=== PATIENT | female | born 1955 | race Caucasian/White ===

== ENCOUNTER 2016-10-05 08:02 | Day surgery (SDC) | payer BC ==
--- NOTE | ~2016-10-05 | EGD ---
EGD REPORT [facility] [address] [address] NAME: RADHA BUENO : [birth year] STATUS : PRE [facility] [place] PAT#: [id number] AGE: 61 ADM/REG DATE : MR#: [id number] REPORT SERV DATE: 10/05/16 DICTATED BY: JESUS PICKENS DATE: 10/05/16 REPORT STATUS : Draft TRANSCRIBED BY: [facility] DATE: 10/05/16 Endoscopy Center Patient Name: Radha Bueno Date of : 1955 Attending MD: JESUS PICKENS MD Procedure Date No Time: 10/05/2016 Procedure: Colonoscopy Indications: High risk colon cancer surveillance: Personal history of colonic polyps Referring MD: ROXANE OLIVERA Medicines: as per anesthesia Complications: No immediate complications. Procedure: Pre-Anesthesia Assessment: - ASA Grade Assessment: III - A patient with severe systemic disease. After I obtained informed consent, the scope was passed under direct vision. Throughout the procedure, the patient's blood pressure, pulse, and oxygen saturations were monitored continuously. The PCF [id number] was introduced through the anus and advanced to the cecum, identified by appendiceal orifice and ileocecal valve. The colonoscopy was performed without difficulty. The patient tolerated the procedure. The quality of the bowel preparation was adequate to identify polyps. Findings: The perianal and digital rectal examinations were normal. Internal hemorrhoids were found during endoscopy and were mild. Impression: - Internal hemorrhoids. Recommendation: - Repeat colonoscopy in 5 years for surveillance. Procedure Code(s): --- Professional --- 58090, Colonoscopy, flexible, proximal to splenic flexure; diagnostic, with or without collection of specimen(s) by brushing or washing, with or without colon decompression (separate procedure) Diagnosis Code(s): --- Professional --- K64.8, Other hemorrhoids Z86.010, Personal history of colonic polyps CPT copyright 2013 [employer]. All rights reserved. EGD REPORT [facility] [address] [facility] [place]. [address] NAME: RADHA BUENO : [birth year] STATUS : PRE [facility] [place] PAT#: [id number] AGE: 61 ADM/REG DATE : MR#: [id number] REPORT SERV DATE: 10/05/16 DICTATED BY: JESUS PICKENS. DATE: 10/05/16 REPORT STATUS : Draft TRANSCRIBED BY: [employer] DATE: 10/05/16 The codes documented in this report are preliminary and upon alterations supervisor review may be revised to meet current compliance requirements. JESUS PICKENS MD 10/05/2016 2:19 PM This report has been signed electronically. Number of Addenda: 0 Note Initiated On: 10/05/2016 1:40 PM Scope Withdrawal Time 0 hours 7 minutes 10 seconds [address] [facility] [place] [address]
--- NOTE | ~2016-10-05 | EGD ---
EGD REPORT [facility] [address] [address] NAME: RADHA BUENO : [birth year] [place] [facility] [place] [id number] AGE: 61 ADM/REG DATE : MR#: [id number] REPORT SERV DATE: 10/05/16 DICTATED BY: JESUS PICKENS DATE: 10/05/16 REPORT STATUS : Draft TRANSCRIBED BY: [facility] DATE: 10/05/16 Endoscopy Center Patient Name: Radha Bueno Date of : 1955 Attending MD: JESUS PICKENS MD Procedure Date No Time: 10/05/2016 Procedure: Upper GI endoscopy Indications: Epigastric abdominal pain, Nausea, Personal history of peptic ulcer disease Referring MD: ROXANE OLIVERA Medicines: as per anesthesia Complications: No immediate complications. Procedure: Pre-Anesthesia Assessment: - ASA Grade Assessment: III - A patient with severe systemic disease. - After reviewing the risks and benefits, the patient was deemed in satisfactory condition to undergo the procedure. After obtaining informed consent, the endoscope was passed under direct vision. Throughout the procedure, the patient's blood pressure, pulse, and oxygen saturations were monitored continuously. The GIF H190 [id number] was introduced through the mouth, and advanced to the third part of duodenum. The upper GI endoscopy was accomplished without difficulty. The patient tolerated the procedure. Findings: The examined esophagus was normal. Localized mild inflammation characterized by erythema was found in the gastric antrum. Biopsies were taken with a cold forceps for histology. The cardia and gastric fundus were normal on retroflexion. The examined duodenum was normal. Impression: - Normal esophagus. - Gastritis. Biopsied. - Normal examined duodenum. Recommendation: - Await pathology results. Procedure Code(s): --- Professional --- 89047, Esophagogastroduodenoscopy, flexible, transoral; with biopsy, single or multiple Diagnosis Code(s): --- Professional --- EGD REPORT [address] [place]. [address] NAME: RADHA BUENO : [birth year] [place] [facility] [place] [id number] AGE: 61 ADM/REG DATE : MR#: [id number] REPORT SERV DATE: 10/05/16 DICTATED BY: JESUS PICKENS DATE: 10/05/16 REPORT STATUS : Draft TRANSCRIBED BY: [employer] DATE: 10/05/16 K29.70, Gastritis, unspecified, without bleeding R10.13, Epigastric pain R11.0, Nausea Z87.11, Personal history of peptic ulcer disease CPT copyright 2013 [employer]. All rights reserved. The codes documented in this report are preliminary and upon burglar alarm inspector review may be revised to meet current compliance requirements. JESUS PICKENS MD 10/05/2016 2:03 PM This report has been signed electronically. Number of Addenda: 0 Note Initiated On: 10/05/2016 1:39 PM Scope Withdrawal Time 0 hours 0 minutes [address] [place] [address] [place] [address]
[~2016-10-05 08:02] MED LIST: ADDERALL20 MG PO; COZ25 PO; ESTRACE0.5 MG PO; ESTRADIOL1 MG PO; FISH-EPA1000 MG PO; HALCION0.25 MG PO; K500 PO; KLONO2 PO; NEXIUM40 PO; PRISTIQ50 MG PO; SYN1 PO; VITAMIN D31000 UNIT PO
== END 2016-10-05 23:59 | disposition home health service (06) ==
LOC: DMU 08:02
PROVIDERS: Internal Medicine Gastroenterology
PROC: 0DJD8ZZ Inspection of Lower Intestinal Tract, Via Natural or Artificial Opening Endoscopic (ICD-10-PCS; principal; 2016-10-05 12:00)
PROC: 0DB68ZX Excision of Stomach, Via Natural or Artificial Opening Endoscopic, Diagnostic (ICD-10-PCS; 2016-10-05 12:00)
DX: K64.8 Other hemorrhoids (principal); G47.33 Obstructive sleep apnea (adult) (pediatric); I10 Essential (primary) hypertension; F17.200 Nicotine dependence, unspecified, uncomplicated; F90.9 Attention-deficit hyperactivity disorder, unspecified type; G43.909 Migraine, unspecified, not intractable, without status migrainosus; E78.00 Pure hypercholesterolemia, unspecified; K21.9 Gastro-esophageal reflux disease without esophagitis; E03.9 Hypothyroidism, unspecified; F41.9 Anxiety disorder, unspecified; F32.9 Major depressive disorder, single episode, unspecified; F41.0 Panic disorder [episodic paroxysmal anxiety]; Z98.890 Other specified postprocedural states; Z90.49 Acquired absence of other specified parts of digestive tract; Z90.710 Acquired absence of both cervix and uterus; Z87.442 Personal history of urinary calculi; Z99.81 Dependence on supplemental oxygen; Z86.010 Personal history of colon polyps; Z87.11 Personal history of peptic ulcer disease; Z88.8 Allergy status to other drugs, medicaments and biological substances
CPT/HCPCS: 88305